=== PATIENT | male | born 1995 | race Caucasian/White ===

== ENCOUNTER 2017-02-16 14:38 | Emergency (ER) | payer OTHER ==
[~2017-02-16] VITALS: Ht 182.9 cm; Wt 75.0 kg
[2017-02-16 14:39] VITALS: BP 135/79
[2017-02-16] MEDS ORDERED: ADVI200T PO (14:58)
== END 2017-02-16 16:27 | disposition home or self-care (01) ==
LOC: M ED 14:38
DX: J02.9 Acute pharyngitis, unspecified (principal)